=== PATIENT | female | born 1990 | race Caucasian/White ===

== ENCOUNTER → 2019-02-15 21:15 | Emergency (ER) | payer OTHER ==
--- NOTE | 2019-02-15 22:38 | ED ---
Head Injury - HPI Summary HPI Summary: 28-year-old female presents with head injury today. She states that she feel backwards and struck her head. She denies any loss consciousness. She admits to headache and some dizziness. No change in vision. No nausea or vomiting. She denies ay difficulties concentrating. No photophobia. Denies any history of concussions. Has no medical conditions. Denies any neck pain. No other injury. - History Of Current Complaint Chief Complaint: EDHeadInjury Stated Complaint: HEAD INJURY PER PT Time Seen by Provider: 02/15/19 22:12 Pain Intensity: 5 - Allergies/Home Medications Allergies/Adverse Reactions: Allergies Allergy/AdvReac Type Severity Reaction Status Date / Time No Known Allergies Allergy Verified 02/15/19 22:22 Home Medications: Home Medications Ascorbic Acid TAB* [Vitamin C TAB*] 1,000 mg PO DAILY 02/15/19 [History Confirmed 02/15/19] Multivitamin [Multiple Vitamins] 1 tab PO DAILY 02/15/19 [History Confirmed 09/04] Sertraline* [Zoloft*] 50 mg PO DAILY 02/15/19 [History Confirmed 02/15/19] Vitamin E 400 units PO DAILY 02/15/19 [History Confirmed 02/15/19] PMH/Surg Hx/FS Hx/Imm Hx Endocrine/Hematology History: Denies: Hx Anticoagulant Therapy Respiratory History: Denies: Hx Asthma Infectious Disease History: No Infectious Disease History: Denies: Traveled Outside the [place] in Last 30 Days - Family History Known Family History: Positive: Non-Contributory - Social History Alcohol Use: Occasionally Substance Use Type: Reports: None Smoking Status (MU): Never Smoked Tobacco Review of Systems Negative: Fever Negative: Chest Pain Negative: Shortness Of Breath Neurological: Other - dizziness Positive: Headache All Other Systems Reviewed And Are Negative: Yes Physical Exam Triage Information Reviewed: Yes Vital Signs On Initial Exam: Initial Vitals Temp Pulse Resp BP Pulse Ox 97.6 F 85 18 138/91 98 02/15/19 21:32 02/15/19 21:32 02/15/19 21:32 02/15/19 21:32 02/15/19 21:32 Vital Signs Reviewed: Yes Appearance: Positive: Well-Appearing Skin: Positive: Warm, Dry Head/Face: Positive: Normal Head/Face Inspection Eyes: Positive: Normal, EOMI, FELIX, Conjunctiva Clear ENT: Positive: Normal ENT inspection, Pharynx normal, TMs normal Neck: Positive: Other: - nontender neck Respiratory/Lung Sounds: Positive: Clear to Auscultation, Breath Sounds Present Cardiovascular: Positive: Normal, RRR Musculoskeletal: Positive: Normal Neurological: Positive: Sensory/Motor Intact, Alert, Oriented to Person Place, Time, CN Intact II-III, Finger to Nose Psychiatric: Positive: Normal - Falcon Coma Scale Best Eye Response: 4 - Spontaneous Best Motor Response: 6 - Obeys Commands Best Verbal Response: 5 - Oriented Coma Scale Total: 15 Diagnostics - Vital Signs Vital Signs Temp Pulse Resp BP Pulse Ox 02/15/19 21:32 97.6 F 85 18 138/91 98 - Laboratory Lab Statement: Any lab studies that have been ordered have been reviewed, and results considered in the medical decision making process. Head Injury Course/Dx Course Of Treatment: 28-year-old female presents with head injury today. She states that she feel backwards and struck her head. She denies any loss consciousness. She admits to headache and some dizziness. No change in vision. No nausea or vomiting. She denies ay difficulties concentrating. No photophobia. Denies any history of concussions. Has no medical conditions. Denies any neck pain. No other injury. On exam has normal neuro exam. gave concussion precautions. according to [place] rules does not need any head imaging. Told to follow with primary. Patient understands agrees with plan. - Diagnoses Differential Diagnosis/HQI/PQRI: Concussion Without LOC, Contusion, Intracranial Bleed Provider Diagnoses: Head injury Discharge - Sign-Out/Discharge Documenting (check all that apply): Patient Departure Patient Received Moderate/Deep Sedation with Procedure: No - Discharge Plan Condition: Good Disposition: HOME Patient Education Materials: Head Injury (ED) Referrals: [facility] [place] [facility] REFERRAL [Outside] Additional Instructions: Place ice on area as needed Take Tylenol or ibuprofen for headache every 6 hours Modify activities as tolerated establish care with primary Return to ED if develop vomiting, severe headache, change in behavior, or any new or worsening symptoms - Billing Disposition and Condition Condition: GOOD Disposition: Home
[2019-02-15 22:42] VITALS: BP 127/93
== END | disposition home or self-care (01) ==
LOC: ED 21:15
DX: S09.90XA Unspecified injury of head, initial encounter (principal); W18.30XA Fall on same level, unspecified, initial encounter; Y92.9 Unspecified place or not applicable; Y99.0 Civilian activity done for income or pay; R42 Dizziness and giddiness; R51 Headache
CPT/HCPCS: 99282